=== PATIENT | male | born 1935 ===

== ENCOUNTER 2022-12-15 12:23 | Outpatient (CLI) | payer MEDICARE, SELFPAY ==
[2022-12-15 11:55] LABS: Abs Immature Grans 0.04 10^3/uL (0.0-0.06); Absolute Basophil Count 0.02 10^3/uL (0.0-0.2); Absolute Eosinophil Count 0.17 10^3/uL (0.0-0.7); Absolute Lymphocyte Count 1.86 10^3/uL (1.2-3.4); Absolute Monocyte Count 0.59 10^3/uL (0.1-0.8); Absolute Neutrophil Count 4.52 10^3/uL (1.2-6.7); Basophils % 0.3; Eosinophils % 2.4; HCT 43.1 % (40.0-50.0); HGB 14.6 g/dL (13.5-17.5); Immature Grans % 0.6; Lymphocytes % 25.8; MCH 32.5 pg (27.0-33.0); MCHC 33.9 % (32.0-36.0); MCV 96 fL (80-95); MPV 10.1 fL (8.0-11.0); Monocytes % 8.2; Neutrophils % 62.7; Platelet Count 131 10^3/uL (130-400); RBC 4.49 10^6/uL (4.36-5.78); RDW 13.1 % (11.8-14.1); RDW-SD 46.1 fL
== END 2022-12-15 12:24 | disposition home or self-care (01) ==
LOC: LBO 12:24
PROVIDERS: Visit Provider Nurse Practitioner Family
DX: C85.99 Non-Hodgkin lymphoma, unspecified, extranodal and solid organ sites (principal)
CPT/HCPCS: 36415; 85025

== ENCOUNTER → 2024-03-05 12:51 | Outpatient (BNVA) | payer MEDICARE, SELFPAY | PROVIDERS: Visit Provider Podiatrist | DX: L60.3 Nail dystrophy (principal); B35.1 Tinea unguium; D64.9 Anemia, unspecified | CPT/HCPCS: 11719; 11720; 11720-NC; 99203 ==

== ENCOUNTER 2024-04-15 15:27 | Outpatient (CLI) | payer MEDICARE, SELFPAY ==
[2024-04-15 11:52] LABS: Abs Immature Grans 0.02 10^3/uL (0.0-0.06); Absolute Basophil Count 0.02 10^3/uL (0.0-0.2); Absolute Eosinophil Count 0.07 10^3/uL (0.0-0.7); Absolute Lymphocyte Count 0.94 10^3/uL (1.2-3.4); Absolute Monocyte Count 0.51 10^3/uL (0.1-0.8); Absolute Neutrophil Count 3.73 10^3/uL (1.2-6.7); Basophils % 0.4 %; Eosinophils % 1.3 %; HCT 34.1 % (40.0-50.0); HGB 10.9 g/dL (13.5-17.5); Immature Grans % 0.4 %; Lymphocytes % 17.8 %; MCH 30.9 pg (27.0-33.0); MCV 97 fL (80-95); MPV 9.5 fL (8.0-11.0); Monocytes % 9.6 %; Neutrophils % 70.5 %; Platelet Count 177 10^3/uL (130-400); RBC 3.53 10^6/uL (4.36-5.78); RDW 15.9 % (11.8-14.1); RDW-SD 56.3 fL; WBC 5.29 10^3/uL (4.4-10.8)
[2024-04-15 12:27] LABS: Ferritin 122 ng/mL (26-388)
== END 2024-04-15 15:28 | disposition home or self-care (01) ==
LOC: LBO 04-24 15:28
PROVIDERS: Visit Provider Internal Medicine Hematology & Oncology
DX: D50.0 Iron deficiency anemia secondary to blood loss (chronic) (principal)
CPT/HCPCS: 36415; 82728; 85025

== ENCOUNTER → 2024-07-10 13:27 | Outpatient (BNVA) | payer MEDICARE, SELFPAY | PROVIDERS: Visit Provider Podiatrist | DX: B35.1 Tinea unguium (principal); L60.3 Nail dystrophy; R20.2 Paresthesia of skin ==

== ENCOUNTER → 2024-11-13 12:51 | Outpatient (BNVA) | payer MEDICARE, SELFPAY | PROVIDERS: Visit Provider Podiatrist | DX: L60.3 Nail dystrophy (principal); B35.1 Tinea unguium; R20.2 Paresthesia of skin; Z86.2 Personal history of diseases of the blood and blood-forming organs and certain disorders involving the immune mechanism; R20.8 Other disturbances of skin sensation; L60.8 Other nail disorders; R23.8 Other skin changes; D51.9 Vitamin B12 deficiency anemia, unspecified | CPT/HCPCS: 11719; 11720 ==

== ENCOUNTER → 2025-03-24 09:55 | Outpatient (BNVA) | payer MEDICARE, SELFPAY | PROVIDERS: Visit Provider Podiatrist | DX: B35.1 Tinea unguium (principal); L60.3 Nail dystrophy; N18.31 Chronic kidney disease, stage 3a; D51.9 Vitamin B12 deficiency anemia, unspecified; R09.89 Other specified symptoms and signs involving the circulatory and respiratory systems; R20.8 Other disturbances of skin sensation; L65.9 Nonscarring hair loss, unspecified; R23.8 Other skin changes; L60.2 Onychogryphosis; L60.8 Other nail disorders; R20.2 Paresthesia of skin | CPT/HCPCS: 11719; 11720 ==

== ENCOUNTER → 2025-07-15 14:49 | Outpatient (BNVA) | payer MEDICARE, SELFPAY | PROVIDERS: Visit Provider Podiatrist | DX: L60.3 Nail dystrophy (principal); B35.1 Tinea unguium; N18.31 Chronic kidney disease, stage 3a; D51.9 Vitamin B12 deficiency anemia, unspecified; R20.8 Other disturbances of skin sensation; L65.9 Nonscarring hair loss, unspecified; R23.4 Changes in skin texture; L60.2 Onychogryphosis; L60.8 Other nail disorders; R20.2 Paresthesia of skin | CPT/HCPCS: 11719; 11720 ==